=== PATIENT | male | born 1950 | race Two or more races ===

== ENCOUNTER 2024-03-23 20:54 | Emergency (ER) | payer OTHER, MEDICAID, SELFPAY ==
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
[2024-03-23 21:01] VITALS: PULSE 77
[2024-03-23 21:06] VITALS: BP 156/75; PULSE 85; RESP 16; TEMP 36.8; O2SAT 97
[2024-03-23 21:21] VITALS: BMI 26.6
[2024-03-23] MEDS: ONDANSETRON INJ 2 MG/ML INJ 2 ML 4 MG IV (22:04)
[2024-03-23] MEDS: MORPHINE SULF INJ 10 MG/ML VIAL 2 MG IVP (22:04)
[2024-03-23 23:38] VITALS: BP 143/56; PULSE 72; RESP 16; TEMP 37.2; O2SAT 95
[2024-03-24] MEDS: HYDROcodone/APAP 5/325 TABLET 1 TAB PO (01:46)
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
[2024-03-24] MEDS: DIAZEPAM INJ 5 MG/ML VIAL 2 ML 2.5 MG IVP (02:44)
[2024-03-24 02:47] VITALS: BP 112/55; PULSE 68; RESP 18; TEMP 36.6; O2SAT 93
[2024-03-24 04:38] VITALS: BP 98/54; PULSE 59; RESP 19; TEMP 37.1; O2SAT 96
[2024-03-24] MEDS: DIAZEPAM 5 MG TABLET 2 MG PO (05:52)
[2024-03-24 06:06] VITALS: BP 113/68; PULSE 98; RESP 18; TEMP 37.1; O2SAT 99
== END 2024-03-24 06:06 | disposition home or self-care (01) ==
PROVIDERS: Emergency Provider Emergency Medicine; PCP Physician Assistant
DX: S70.02XA Contusion of left hip, initial encounter (principal); S29.9XXA Unspecified injury of thorax, initial encounter; S19.9XXA Unspecified injury of neck, initial encounter; S09.90XA Unspecified injury of head, initial encounter; I10 Essential (primary) hypertension; E78.00 Pure hypercholesterolemia, unspecified; E11.9 Type 2 diabetes mellitus without complications; V89.2XXA Person injured in unspecified motor-vehicle accident, traffic, initial encounter; Y92.410 Unspecified street and highway as the place of occurrence of the external cause
CPT/HCPCS: 70450; 71045; 72125; 73502; 99284; J2270; J2405; J3360; A9270

== ENCOUNTER → 2024-05-14 | Outpatient (CLI) | payer MEDICARE, MEDICAID, SELFPAY ==
[2024-05-14 08:50] LABS: Basophils # (Auto) 0.1 Thou/mm3 (0.0-0.2); Basophils % (Auto) 1 % (0-2.5); Eosinophils # (Auto) 0.3 Thou/mm3 (0.0-0.5); Eosinophils % (Auto) 4 % (0-10); Hematocrit 41.3 % (41.0-53.0); Immature Granulocytes % (Auto) 0 % (0-0); Immature Granulocytes Auto 0.02 Thou/mm3 (0.00-0.00); Lymphocytes % (Auto) 30 % (10-50); Mean Corpuscular HGB Conc 33.9 g/dl (31.0-37.0); Mean Corpuscular Hemoglobin 32.3 pg (25.0-35.0); Mean Corpuscular Volume 95 fL (80-100); Monocytes # (Auto) 0.5 Thou/mm3 (0.0-0.8); Monocytes % (Auto) 7 % (0-12); Neutrophils # (Auto) 3.9 Thou/mm3 (1.8-7.7); Neutrophils % (Auto) 58 % (37-80); Nucleated Red Blood Cell % 0 /100 WBC (0); Platelet Count 214 Thou/mm3 (140-440); RDW Standard Deviation 47.8 fL (35.1-43.9); Red Blood Count 4.34 Miln/mm3 (4.50-5.90); White Blood Count 6.7 Thou/mm3 (3.8-10.6)
[2024-05-14 08:54] LABS: Prostate Specific Antigen 1.23 ng/mL (0-4.00)
[2024-05-14 08:59] LABS: Vitamin B12 874 pg/mL (211-911)
[2024-05-14 09:17] LABS: Alanine Aminotransferase 20 U/L (10-49); Albumin, Serum 4.7 gm/dL (3.4-4.8); Alkaline Phosphatase 58 U/L (46-116); Anion Gap 6 (7-16); Aspartate Amino Transferase 13 U/L (0-34); BUN/Creatinine Ratio 18 Ratio (12-20); Bilirubin,Total 0.8 mg/dL (0.3-1.2); Blood Urea Nitrogen 16 mg/dL (9-23); Calcium 9.7 mg/dL (8.3-10.6); Calcium (Corrected) 9.7 mg/dL (8.5-10.1); Carbon Dioxide 31.6 mMol/L (20.0-31.0); Cardiac Risk Estimate 3.4 RATIO (4.0-6.7); Chloride 101 mMol/L (98-107); Cholesterol 167 mg/dL (132-200); Creatinine (Component) 0.9 mg/dL (0.6-1.3); Free T4 (Free Thyroxine) 1.15 ng/dL (0.89-1.76); Globulin 2.4 gm/dL (2.3-3.5); Glucose 143 mg/dL (74-106); HDL Cholesterol 49 mg/dL (40-60); LDL Cholesterol,Calculated 84 mg/dL (0-130); Osmolality,Calculated 280 (275-295); Potassium 4.1 mMol/L (3.4-5.1); Sodium 139 mMol/L (136-145); Total Protein 7.1 gm/dL (5.7-8.2); Triglycerides 171 mg/dL (30-150); eGFR > 60 See Note
[2024-05-14 09:29] LABS: Creatinine MALB Rnd Ur 133 mg/dL (30-125); Microalbumin, Random Urine < 3 mg/L (0-300)
== END | disposition home or self-care (01) ==
LOC: COPL 06:58
PROVIDERS: PCP Physician Assistant; Referring Provider Nurse Practitioner Acute Care; Visit Provider Nurse Practitioner Acute Care
DX: E11.65 Type 2 diabetes mellitus with hyperglycemia (principal); I10 Essential (primary) hypertension; N40.1 Benign prostatic hyperplasia with lower urinary tract symptoms; R53.83 Other fatigue
CPT/HCPCS: 36415; 80053; 80061; 82043; 82306; 82570; 82607; 84153; 84439; 84443; 85025

== ENCOUNTER → 2024-05-31 | Outpatient (CLI) | payer MEDICARE, MEDICAID, SELFPAY ==
--- NOTE | 2024-05-31 12:57 | XR_ITS ---
Examination: Fingers, right hand first digit 3 views Technique: AP, oblique, lateral views right hand first digit. Exam date and time: May 31, 2024 1327 hours INDICATIONS: Right thumb pain beginning one year ago. 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
--- NOTE | 2024-05-31 12:57 | XR_ITS ---
Examination: Hand, right 3 views Technique: Hand AP, oblique, lateral 3 views Date and time of exam: May 31, 2024 1327 hours INDICATIONS: Right finger pain beginning one year ago. FINDINGS: Advanced osteoarthritis radiocarpal joint Old deformities of the lunate and navicular Advanced osteoarthritis first carpometacarpal joint Moderate osteoarthritis interphalangeal joints Soft tissue vascular calcification IMPRESSION: Advanced osteoarthritis first carpometacarpal joint, radiocarpal joint
== END | disposition home or self-care (01) ==
LOC: CDIM 12:32
PROVIDERS: PCP Nurse Practitioner Family; Referring Provider Nurse Practitioner Family; Visit Provider Nurse Practitioner Family
DX: M18.11 Unilateral primary osteoarthritis of first carpometacarpal joint, right hand (principal); M19.041 Primary osteoarthritis, right hand
CPT/HCPCS: 73130; 73140

== ENCOUNTER → 2024-12-09 | Outpatient (CLI) | payer MEDICARE, MEDICAID, SELFPAY ==
[2024-12-09 10:59] LABS: Vitamin B12 1433 pg/mL (211-911); Vitamin D 25 Hydroxy Total 41.2 ng/mL (7.3-40.2)
== END | disposition home or self-care (01) ==
LOC: COPL 10:11
PROVIDERS: PCP Internal Medicine; Referring Provider Psychiatry & Neurology Neurology; Visit Provider Psychiatry & Neurology Neurology
DX: E53.8 Deficiency of other specified B group vitamins (principal); E55.9 Vitamin D deficiency, unspecified
CPT/HCPCS: 36415; 82306; 82607

== ENCOUNTER 2025-01-20 06:40 | Day surgery (SDC) | payer MEDICARE, MEDICAID, SELFPAY ==
[2025-01-19 14:37] VITALS: BMI 26.4
[2025-01-20] VITALS (10 sets, daily range): BP systolic 100–156; BP diastolic 60–78; PULSE 50–60; RESP 12–18; TEMP 36.5–36.6; O2SAT 94–97; BMI 25.7
[2025-01-20] MEDS: RINGERS LACTATED 500 ML 500 ML 20 ML IV (08:37)
[2025-01-20] MEDS: fentaNYL CIT INJ 50 mCg/ML AMP 2ML (ASD USE ONLY) IVP ×2 (08:39→08:49)
[2025-01-20] MEDS: MIDAZOLAM INJ 1 MG/ML VIAL 2 ML (ASD USE ONLY) 2 MG IVP ×2 (08:39→08:49)
[2025-01-20] MEDS: SIMETHICONE 40 MG/0.6 ML ORAL SYRINGE PO (08:45)
== END 2025-01-20 09:40 | disposition home or self-care (01) ==
PROVIDERS: PCP Internal Medicine; Referring Provider Internal Medicine Gastroenterology; Visit Provider Internal Medicine Gastroenterology
PROC: 0DBE8ZX Excision of Large Intestine, Via Natural or Artificial Opening Endoscopic, Diagnostic (ICD-10-PCS; CPT 45380; principal; 2025-01-20 12:00)
DX: D12.4 Benign neoplasm of descending colon (principal); K52.9 Noninfective gastroenteritis and colitis, unspecified; K64.1 Second degree hemorrhoids; K57.30 Diverticulosis of large intestine without perforation or abscess without bleeding; I10 Essential (primary) hypertension; E11.9 Type 2 diabetes mellitus without complications; E88.810 Metabolic syndrome
CPT/HCPCS: 45380; A4217; A4649; J2250; J3010; J7120; A9270

== ENCOUNTER → 2025-04-18 | Outpatient (CLI) | payer MEDICARE, MEDICAID, SELFPAY ==
--- NOTE | 2025-04-18 | XR_ITS ---
EXAMINATION: PA lateral chest 2 views TECHNIQUE: Upright PA lateral chest 2 views Date and time: April 18, 2025, 12:15 p.m., comparison March 23, 2024 INDICATION: Cough and congestion beginning 1 week ago FINDINGS: Normal heart size Mild ectasia thoracic aorta. Accentuation basilar bronchovascular markings. No lobar pneumonia or pulmonary edema IMPRESSION: Basilar bronchitis pattern
== END | disposition home or self-care (01) ==
PROVIDERS: PCP Obstetrics & Gynecology
DX: R05.8 Other specified cough (principal)
CPT/HCPCS: 71046